=== PATIENT | female | born 1985 | race Caucasian/White ===

== ENCOUNTER 2021-04-25 23:23 | Observation (INO) | payer OTHER, SELFPAY ==
--- NOTE | ~2021-04-25 | FL_ITS ---
EXAMINATION: XR LUMBAR PUNCTURE CLINICAL INFORMATION: Slurred speech/dysarthria. Headache and weakness. TIA versus demyelinating disease. COMPARISON: None TECHNIQUE/FINDINGS: Procedure and risks and benefits including bleeding, infection and headache were discussed with the patient and informed consent was obtained. Patient was positioned in the prone position. The lower back was prepped and draped in the usual sterile fashion. The skin and soft tissues were anesthetized with 1% lidocaine plain. Using fluoroscopic guidance and a 22-gauge spinal needle, access to the CSF fluid at the L3-L4 interlaminar level was obtained. Opening pressure was 16 cm of water. 8 mL of clear CSF fluid was removed. Fluid was sent for diagnostic studies as requested by the ordering physician. FLUOROSCOPY TIME: 0.1 minute DOSE AREA PRODUCT: 0.8 Gycm2 SAVED FLUOROSCOPIC IMAGE: 1 FL/FL guided lumbar puncture LP IMPRESSION: Fluoroscopy-guided lumbar puncture.
--- NOTE | ~2021-04-25 | CT_ITS ---
EXAMINATION: CTA NECK WITH CONTRAST (STROKE) CTA BRAIN WITH CONTRAST (STROKE) CLINICAL INFORMATION: Dysarthria 3.5 hours COMPARISON: Noncontrast head CT 04/25/2021 TECHNIQUE: Test bolus sequences followed by intravenous administration 85 mL of Omnipaque 350. Helical imaging was performed in the axial plane from the thoracic inlet to the skull vertex. Delayed postcontrast imaging of the head was also performed. The data was processed at the chief radiologic technologist's workstation for generation of MIP sequences. Angled MIPs and volume rendered reformatted images were also generated at an offline 3D workstation. Stenoses are assessed in accordance with NASCET criteria unless otherwise indicated. DOSE LOWERING TECHNIQUES: This CT examination was performed using dose optimization techniques as appropriate, variously including the following: - Automated exposure control - Adjustment of mA and/or kV according to patient size (this includes techniques or standardized protocols for targeted exams were dose is matched to indication/reason for exam; i.e. extremities or head) - Use of iterative reconstruction technique DLP: 1394 mGy-cm FINDINGS: Neck CTA: There is a classic 3 vessel branching pattern of the aortic arch. Normal appearance of the visualized aortic arch and proximal branches. No evidence of stenosis at the branch origins. Both vertebral arteries are widely patent throughout their extracranial cervical course. Normal appearance of the common and internal carotid arteries without focal stenosis. Brain CTA: Normal appearance of the intradural vertebral arteries. Normal appearance of the basilar and superior cerebellar arteries. Normal appearance of the posterior cerebral arteries bilaterally. Normal appearance of the intradural internal carotid arteries without focal stenosis. Normal appearance of the anterior cerebral and middle cerebral arteries without focal occlusion or stenosis. Normal anterior communicating artery. Normal arborization of the middle cerebral arteries. CT Head: No intracranial mass, hemorrhage, extra-axial collection, or midline shift. The villareal-white matter differentiation is preserved. No pathologic intra-axial enhancement or regional oligemia. No hydrocephalus. The mastoid air cells and paranasal sinuses remain well aerated. CT Neck: The left salivary gland appears diminutive. The thyroid gland and remaining cervical soft tissues are normal in appearance. No cervical spine abnormalities demonstrated. Upper Chest: No abnormalities in the visualized lung apices or upper mediastinum. CT/CT angio head neck stroke IMPRESSION: No hemodynamically significant stenosis in the major arteries of the neck. No large vessel occlusion or significant stenosis in the intracranial circulation. This stroke protocol result was discussed with Dr. Janelle Montana on 04/26/2021 12:17 AM, and it was ascertained that the content and urgency of the report was understood at the time of direct communication.
--- NOTE | ~2021-04-25 | MR_ITS ---
MR BRAIN WITHOUT AND WITH IV CONTRAST CLINICAL INFORMATION: Slurred speech. TIA versus MS. Dysarthria. COMPARISON: CTA head and neck and head CT 04/25/2021. TECHNIQUE: Multiplanar, multisequence MRI of the brain was obtained before and after the intravenous administration of 9 mL Gadavist. FINDINGS: There is significant non-enhancing restricted diffusion within the central splenium of the corpus callosum, the deep white matter of the centrum semiovale bilaterally, and to a lesser extent the middle cerebellar peduncles bilaterally. There is no pathologic intracranial enhancement. No parenchymal signal abnormality. There is no hydrocephalus, extra-axial surface collection, or herniation. The major flow voids at the skull base are preserved. There is no intracranial hemorrhage on the gradient recalled echo acquisition. The midline structures are normal. The cerebellar tonsils are normally positioned. The cerebellum and brainstem are normal. The craniocervical junction is normal. Osseous marrow signal intensity is homogenous. The visualized soft tissues are unremarkable. MR/MR head/brain wo/w con IMPRESSION: There is significant non-enhancing restricted diffusion within the central splenium of the corpus callosum, the deep white matter of the centrum semiovale bilaterally, and to a lesser extent the middle cerebellar peduncles bilaterally. Major differential considerations are broad and include toxic, metabolic, infectious, inflammatory, drug-induced, and other cytotoxic etiologies. In the setting of alcohol use, Marchiafava-Bignami disease should be considered. CSF analysis and metabolic panel correlation advised. The pattern of restricted diffusion would not be typical for anoxic changes and the lack of enhancement makes a neoplastic process unlikely.
--- NOTE | ~2021-04-25 | CT_ITS ---
EXAMINATION: CT HEAD WITHOUT CONTRAST (STROKE PROTOCOL) INDICATION INFORMATION: Dysarthria 3.5 hours COMPARISON: None TECHNIQUE: Noncontrast CT of the head was performed. DLP: 616 mGy-cm DOSE LOWERING TECHNIQUES: This CT examination was performed using dose optimization techniques as appropriate, variously including the following: - Automated exposure control - Adjustment of mA and/or kV according to patient size (this includes techniques or standardized protocols for targeted exams were dose is matched to indication/reason for exam; i.e. extremities or head) - Use of iterative reconstruction technique FINDINGS: There is no evidence of acute intracranial hemorrhage or territorial infarction. No abnormal mass-effect or midline shift is seen. Sarkar to white matter differentiation is well preserved. No extra-axial fluid collections are identified. The ventricles are normal in size. There is no abnormal attenuation within the brain parenchyma. The osseous structures and soft tissues are normal. The mastoid air cells and visualized portions of the paranasal sinuses are well-aerated. CT/CT head for stroke IMPRESSION: No acute intracranial findings. This stroke protocol result was discussed with Dr. Janelle Montana on 04/25/2021 11:45 PM, and it was ascertained that the content and urgency of the report was understood at the time of direct communication.
--- NOTE | 2021-04-25 23:33 | ECG_ITS ---
Test Reason : Weakness Blood Pressure : / mmHG Vent. Rate : 081 BPM Atrial Rate : 081 BPM P-R Int : 144 ms QRS Dur : 084 ms QT Int : 396 ms P-R-T Axes : 051 063 053 degrees QTc Int : 460 ms Normal sinus rhythm Possible Left atrial enlargement Otherwise normal ECG No previous ECGs available Referred By: Janelle Montana Electronically Signed By:BHARTI MI MD
--- NOTE | 2021-04-25 23:46 | PC.NURSE ---
call out to neurology
--- NOTE | 2021-04-25 23:49 | ED_ITS ---
HPI - Neuro Symptoms/Deficit General Stated Complaint: stroke Time Seen by Provider: 04/25/21 23:31 Source: patient and EMS Mode of arrival: ambulatory Limitations: no limitations History of Present Illness HPI Narrative: Patient is brought by her father to the emergency room for acute onset of dysarthria and left-sided mouth 3. Patient and family state that the patient has been complaining of weakness sensation in the lower extremities and left hand. Today, approximately 3-1/2 hours ago patient had a sudden onset of dysarthria and mild left-sided mouth droop. This symptoms started a few minutes after taking her regular dose of clonidine. Patient is unable to give any significant history at this time, patient is very anxious, having significant dysarthria, very frustrated trying to communicate with us. Related Data Allergies Allergy/AdvReac Type Severity Reaction Status Date / Time venlafaxine [From EFFEXOR] Allergy Unknown FACIAL Unverified 02/20/20 17:28 SWELLING Effexor Allergy Unknown Uncoded 12/11/14 00:00 Review of Systems Review of Systems: Constitutional : No Weight loss, No Fever, No Chills, No Night Sweats, No Fatigue, No Malaise ENT/Mouth : No Hearing loss, No Ear Pain, No Nasal Congestion, No Sinus Pain, No Hoarseness, No sore throat, No Rhinorrhea, No Swallowing Difficulty Eyes: No Eye Pain, No Swelling, No Redness, No Foreign Body, No Discharge, No Vision Changes Cardiovascular : No Chest Pain, No SOB, No Dyspnea on Exertion, No Orthopnea, No Edema, No Palpitations Respiratory : No Cough, No Sputum, No Wheezing, No Smoke Exposure, No Dyspnea Gastrointestinal : No Nausea, No Vomiting, No Diarrhea, No Constipation, No abdominal Pain, No Hematochezia, No Melena Genitourinary : no irregular bleeding, No Dysuria, No Urinary Frequency, No Hematuria, No Urinary Incontinence, No Urgency, No Flank Pain, No Urinary Flow Changes, No Hesitancy Musculoskeletal : No joint pain, No Myalgias, No Joint Swelling Skin : No Skin Lesions, No rash Neuro : Complaining of 2 days of sensation of lower extremity weakness and left hand weakness sensation as well. Slurred speech starting at 8 p.m. left-sided mouth drooping Psych : No Anxiety/Panic, No Depression, No SI/HI/AH/VH, No Social Issues, Heme/Lymph: No Bruising, No Bleeding,No Lymphadenopathy Endocrine : No Polyuria, No Polydipsia, No Temperature Intolerance [facility] Past Medical History Medical History Depression IV drug abuse Social History Social History Advance Directives: No Advance Directives Information Provided: Yes Patient : No Physical Exam Const: Other: Appearance: Alert. Oriented X3. No acute distress. Eyes: Pupils equal, round and reactive to light. ENT: Pharynx normal. Neck: Normal inspection. Neck supple. No lymph nodes noted. No crepitus CVS: Normal heart rate and rhythm. Pulses normal. Normal S1 and S2 Respiratory: No respiratory distress. Breath sounds normal. No Wheezing. No rales Abdomen: Soft and nontender. No rigidity. No distention. good BS x4 Skin: Skin warm and dry. Normal skin color. Normal skin turgor. Extremities: No lower extremity edema. No lower extremity edema. No Lacerations. No Rash Neuro: Oriented X 3. Patient has slurred speech, mild twitching on the left mouth, mild mild droop on the left side. No pronator drift, 5/5 strength in all extremities Course Course Course Narrative: I was informed by the patient's nurse that while the IV was being placed, the patient was able to speak normally without slurred speech, did not have any facial droop. I discussed the patient with Dr. Chan, at this time, it is unlikely that the patient may be having a stroke. TPA will not be given. Also discussed with Dr. Chan if an LP would be indicated due to the history of lower extremity weakness/sensation of weakness. At this time LP will not be done either. Patient will be admitted for MRI in the morning. I discussed the patient with Dr. Looney, patient being admitted MDM - Neuro Symptoms/Deficit Imaging Data CT head, CTA neck, CTA: Radiologist's impression: FINDINGS: Neck CTA: There is a classic 3 vessel branching pattern of the aortic arch. Normal appearance of the visualized aortic arch and proximal branches. No evidence of stenosis at the branch origins. Both vertebral arteries are widely patent throughout their extracranial cervical course. Normal appearance of the common and internal carotid arteries without focal stenosis. Brain CTA: Normal appearance of the intradural vertebral arteries. Normal appearance of the basilar and superior cerebellar arteries. Normal appearance of the posterior cerebral arteries bilaterally. Normal appearance of the intradural internal carotid arteries without focal stenosis. Normal appearance of the anterior cerebral and middle cerebral arteries without focal occlusion or stenosis. Normal anterior communicating artery. Normal arborization of the middle cerebral arteries. CT Head: No intracranial mass, hemorrhage, extra-axial collection, or midline shift. The villareal-white matter differentiation is preserved. No pathologic intra-axial enhancement or regional oligemia. No hydrocephalus. The mastoid air cells and paranasal sinuses remain well aerated. CT Neck: The left salivary gland appears diminutive. The thyroid gland and remaining cervical soft tissues are normal in appearance. No cervical spine abnormalities demonstrated. Upper Chest: No abnormalities in the visualized lung apices or upper mediastinum. CT/CT angio head? neck stroke IMPRESSION: No hemodynamically significant stenosis in the major arteries of the neck. No large vessel occlusion or significant stenosis in the intracranial circulation. NIH Stroke Scale Level of Consciousness: Alert Level of Consciousness Questions: Answers both questions correctly Level of Consciousness Commands: Performs both tasks correctly Best Gaze: Normal Visual: No visual loss Facial Palsy: Minor paralyis Motor Arm (Right): No drift Motor Arm (Left): No drift Motor Leg (Right): No drift Motor Leg (Left): No drift Limb Ataxia: Absent Sensory: Normal Best Language: No aphasia Dysarthia: Mild to moderate dysarthria Extinction and Inattention: No abnormality Score: 2 Discharge Plan Discharge Clinical Impression: Dysarthria Patient Disposition: Admitted As Inpatient
[2021-04-25] MEDS: iohexoL 350 MG/ML 100 ML INFUS..BTL 85 ML IV (23:59)
[2021-04-26] VITALS (9 sets, daily range): BP systolic 101–140; BP diastolic 62–95; PULSE 74–101; RESP 16–24; TEMP 36.1–37.1; O2SAT 96–99; BMI 23.5
--- NOTE | 2021-04-26 00:08 | PC.NURSE ---
while patient was in ct scan this rn doing full neuro assessment. able to move eye brows up and down equally, smile with no facial droop showing teeth. able to stick out tongue equally. patient has no arm drift, hand grasp is equal with no deficits, able to lift both legs and equal strength. patient having no issues with words while placing iv while in ct scan. patient shouting fuck no droop or slurring. but when patient asked what her name is patient seen clenching teeth on the left side and stating her name, cheek muscles seen moving as patient holding her mouth closed on that side. after ct scan provider going to evaluate patient. patient got up and ambulated to the bathroom without issue mid-evaluation with provider dr. white.
[2021-04-26 00:20] LABS: MANUAL DIFF FLAG NO
[2021-04-26 00:22] LABS: Basophils Percent Auto 0.4 % (0-2); Hemoglobin 11.6 g/dl (12.0-16.0); Imm Gran Abs Auto 0.01 X10*3/uL (0.00-0.03); Imm Gran Pct Auto 0.2 % (0.0-0.4); Lymphocytes Absolute Auto 1.8 X10*3/uL (1.2-4.9); Lymphocytes Percent Auto 35.3 % (20-40); Mean Corpuscular HGB Conc 33.1 g/dl (31.0-35.0); Mean Corpuscular Hemoglobin 27.9 pg (27.0-33.0); Mean Corpuscular Volume 84.1 fL (80.0-98.0); Mean Platelet Volume 9.7 fL (9.4-12.3); Monocytes Absolute Auto 0.6 X10*3/uL (0.1-1.2); Neutrophils Absolute Auto 2.7 x10*3/uL (2.0-8.3); Neutrophils Percent Auto 53.1 % (45-73); Platelet Count 183 X10*3/uL (160-400); Red Blood Count 4.16 X10*6/uL (4.20-5.50)
[2021-04-26 00:23] LABS: Appearance Urine CLEAR; Color Urine YELLOW; Glucose Urine UA NEG (NEG); Leukocyte Esterase Urine NEG (NEG); Nitrite Urine NEG (NEG); Specific Gravity - Urine <= 1.005 (1.005-1.025); Urine Blood NEG (NEG); Urine Ketones NEG (NEG); Urine Protein NEG (NEG-TRACE)
[2021-04-26 00:35] LABS: Ethanol < 10 mg/dL
[2021-04-26 00:37] LABS: COVID-19 Test Negative (Negative); IDNOW Serial# 9DD0AD1C
[2021-04-26 00:38] LABS: Amphetamine Screen Urine Not Detected (Not Detect); Barbiturates, Urine Not Detected (Not Detect); Benzodiazepines Screen Urine Not Detected (Not Detect); Cannabinoid Screen Urine Not Detected (Not Detect); Cocaine Screen Urine Not Detected (Not Detect); Fentanyl, urine Not Detected (Not Detect); Opiate Screen Urine Not Detected (Not Detect); Phencyclidine Screen Urine Not Detected (Not Detect)
[2021-04-26 00:39] LABS: Alanine Aminotransferase 15 U/L (0-31); Albumin Level 4.1 g/dL (3.5-5.0); Alkaline Phosphatase 53 U/L (39-117); Anion Gap 13 (12-20); Aspartate Amino Transferase 25 U/L (5-31); Bilirubin Direct < 0.2 mg/dL (0.0-0.5); Bilirubin Total 0.3 mg/dL (0.0-1.0); Blood Urea Nitrogen 12 mg/dL (9-16); Calcium 9.1 mg/dL (8.4-10.2); Carbon Dioxide 27 mmol/L (22-29); Chloride 99 mmol/L (96-108); Creatinine Clr Calc Pharmacy 95.1; Estimated Glomerular Filt Rate > 60; Glucose Random 105 mg/dL (60-115); Magnesium 1.9 mg/dL (1.6-2.6); Potassium 3.1 mmol/L (3.3-5.1); Sodium 136 mmol/L (135-145); Total Protein 6.7 g/dL (6.5-8.0)
--- NOTE | 2021-04-26 00:51 | PC.NURSE ---
notified [facility] of trop 18.0
--- NOTE | 2021-04-26 01:29 | P.HPHOSP_ITS ---
History of Present Illness Date of Service: 04/26/21 Chief Complaint: slurred speech 35-year-old female with past medical history of depression IV drug abuse who presents to the hospital for acute onset dysarthria and left-sided mouth droopiness. Patient reports that she has difficulty speaking,as numbness and t ingling around her lips, weakness in her legs bilaterally and tingling in her hands bilaterally Symptoms started around 8:00 p.m., have not resolved. She otherwise denies any headache, no change in vision, no chest pain no abdominal pain, no nausea or vomiting, no diarrhea or constipation, no urinary symptoms and no lower extremity edema. Her father is a physician who is at bedside reports the patient did use IV cocaine recently and has a history of IV drug use and that is why they were very concerned. Vital signs reviewed significant for temperature of 97?, rate of 101, respiratory rate of 24, blood pressure 137/95, statin and% room air Labs are significant for WBC count of 5, hemoglobin of 11.6, otherwise unremarkable, UA negative, UDS negative, COVID-[address] shows no acute intracranial finding Head and neck CT angiogram shows no hemodynamically significant stenosis in the major arteries of the neck, no large vessel occlusion or significant stenosis in the intracranial circulation Patient will be admitted for observation Review of Systems Review of Systems: Yes all other systems are reviewed and are negative [facility] Medical History Depression IV drug abuse Pertinent family history: Father at bedside denies any family history, No history of coronary artery disease in family Surgical History (Updated 04/26/21 @ 05:45 by Chrissy Looney MD) No pertinent past surgical history Social History Advance Directives: No Advance Directives Information Provided: Yes Patient : No Meds Allergies Allergy/AdvReac Type Severity Reaction Status Date / Time venlafaxine [From EFFEXOR] Allergy Unknown FACIAL Unverified 02/20/20 17:28 SWELLING Effexor Allergy Unknown Uncoded 12/11/14 00:00 Home Medications Medication Instructions Recorded Confirmed Last Taken Type clonidine HCl 0.1 mg tablet 1 tab PO QID PRN 04/26/21 04/26/21 Unknown History duloxetine 60 mg capsule,delayed 2 cap PO BEDTIME 04/26/21 04/26/21 Unknown History release hydroxyzine HCl 50 mg tablet 1 tab PO Q6H PRN 04/26/21 04/26/21 Unknown History nifedipine 10 mg capsule 10 mg PO BID PRN 04/26/21 04/26/21 Unknown History oxybutynin chloride 5 mg tablet 1 tab PO TID 04/26/21 04/26/21 Unknown History Physical Exam Vital Signs and Narrative: Vital Signs: Last Vital Signs Temp 98.7 F 04/26/21 00:24 Pulse 101 H 04/26/21 00:24 Resp 16 04/26/21 00:24 BP 101/62 04/26/21 00:24 Pulse Ox 96 04/26/21 00:24 Body Mass Index 23.5 Const: General: cooperative and no acute distress Orientation/consciousness: patient oriented x3 Eyes: General: appearance normal, both eyes and all related structures Pupils: Equal, round and reactive pupils present Resp: Effort & Inspection: normal respiratory effort Auscultation: clear to auscultation bilaterally Cardio: Rate: regular rate Rhythm: regular rhythm GI: Palpation (GI): Soft to palpation Auscultation: normal bowel sounds Skin: General skin exam: no rashes or lesions noted Neuro: Other: Dysarthria No significant facial droop or asymmetry Strength is 5/5 in all extremities General: patient oriented x3 Cranial nerves: Yes Equal, round and reactive pupils present Cognition (Neuro): normal cognition Extrem: General: Yes normal to inspection and Yes no pedal edema Results Labs CBC and Chem 7: 04/26/21 00:14 04/26/21 00:14 Labs: Laboratory Results - last 24 hr 04/26/21 04/26/21 04/26/21 00:13 00:13 00:13 MCV MCH MCHC RDW Plt Count MPV Immature Gran % (Auto) Neut % (Auto) Lymph % (Auto) [place] % (Auto) Eos % (Auto) Baso % (Auto) Lymph # (Auto) [place] # (Auto) Eos # (Auto) Baso # (Auto) Abs Immat Gran (auto) Absolute Neuts (auto) Absolute Nucleated RBC Nucleated RBC % (auto) Anion Gap Estim Creat Clear Calc Estimated GFR Random Glucose Lactic Acid Calcium Magnesium Total Bilirubin Direct Bilirubin AST ALT Alkaline Phosphatase Troponin I High Sens Total Protein Albumin Urine Color YELLOW Urine Appearance CLEAR Urine pH 7.0 Ur Specific [place] <= 1.005 Urine Protein NEG Urine Glucose (UA) NEG Urine Ketones NEG Urine Blood NEG Urine Nitrite NEG Ur Leukocyte Esterase NEG Urine Opiates Screen Not Detected Urine Fentanyl Screen Not Detected Ur Barbiturates Screen Not Detected Ur Phencyclidine Scrn Not Detected Ur Amphetamines Screen Not Detected U Benzodiazepines Scrn Not Detected Urine Cocaine Screen Not Detected U Marijuana (THC) Screen Not Detected Ethyl Alcohol COVID-19 (AILYN) Negative COVID-19 Clin Com See Note 04/26/21 04/26/21 04/26/21 00:14 00:14 00:14 MCV 84.1 MCH 27.9 MCHC 33.1 RDW 13.0 Plt Count 183 MPV 9.7 Immature Gran % (Auto) 0.2 Neut % (Auto) 53.1 Lymph % (Auto) 35.3 [place] % (Auto) 11.0 Eos % (Auto) 0.0 Baso % (Auto) 0.4 Lymph # (Auto) 1.8 [place] # (Auto) 0.6 Eos # (Auto) 0.0 Baso # (Auto) 0.0 Abs Immat Gran (auto) 0.01 Absolute Neuts (auto) 2.7 Absolute Nucleated RBC 0.000 Nucleated RBC % (auto) 0.0 Anion Gap 13 Estim Creat Clear Calc 95.1 Estimated GFR > 60 Random Glucose 105 Lactic Acid Calcium 9.1 Magnesium 1.9 Total Bilirubin 0.3 Direct Bilirubin < 0.2 AST 25 ALT 15 Alkaline Phosphatase 53 Troponin I High Sens 18.0 H* Total Protein 6.7 Albumin 4.1 Urine Color Urine Appearance Urine pH Ur Specific [place] Urine Protein Urine Glucose (UA) Urine Ketones Urine Blood Urine Nitrite Ur Leukocyte Esterase Urine Opiates Screen Urine Fentanyl Screen Ur Barbiturates Screen Ur Phencyclidine Scrn Ur Amphetamines Screen U Benzodiazepines Scrn Urine Cocaine Screen U Marijuana (THC) Screen Ethyl Alcohol COVID-19 (AILYN) COVID-19 [employer] Com 04/26/21 04/26/21 00:15 00:15 MCV MCH MCHC RDW Plt Count MPV Immature Gran % (Auto) Neut % (Auto) Lymph % (Auto) [place] % (Auto) Eos % (Auto) Baso % (Auto) Lymph # (Auto) [place] # (Auto) Eos # (Auto) Baso # (Auto) Abs Immat Gran (auto) Absolute Neuts (auto) Absolute Nucleated RBC Nucleated RBC % (auto) Anion Gap Estim Creat Clear Calc Estimated GFR Random Glucose Lactic Acid 1.0 Calcium Magnesium Total Bilirubin Direct Bilirubin AST ALT Alkaline Phosphatase Troponin I High Sens Total Protein Albumin Urine Color Urine Appearance Urine pH Ur Specific [place] Urine Protein Urine Glucose (UA) Urine Ketones Urine Blood Urine Nitrite Ur Leukocyte Esterase Urine Opiates Screen Urine Fentanyl Screen Ur Barbiturates Screen Ur Phencyclidine Scrn Ur Amphetamines Screen U Benzodiazepines Scrn Urine Cocaine Screen U Marijuana (THC) Screen Ethyl Alcohol < 10 COVID-19 (AILYN) COVID-19 Clin Com Imaging Radiologist's Impressions: Impressions Head/Neck CTA 04/25/21 23:31 IMPRESSION: No hemodynamically significant stenosis in the major arteries of the neck. No large vessel occlusion or significant stenosis in the intracranial circulation. This stroke protocol result was discussed with Dr. Janelle Montana on 04/26/2021 12:17 AM, and it was ascertained that the content and urgency of the report was understood at the time of direct communication. Head CT 04/25/21 23:32 IMPRESSION: No acute intracranial findings. This stroke protocol result was discussed with Dr. Janelle Montana on 04/25/2021 11:45 PM, and it was ascertained that the content and urgency of the report was understood at the time of direct communication. Assessment and Plan (1) Dysarthria: Status: Acute 35-year-old female past medical history of IV drug use presents to the hospital with complaints of dysarthria, paresthesia on her aunt as well as weakness in arms # dysarthria - no neurological deficits on exam except the dysarthria - CT head and CT angiogram negative - does have history of IV drug use with a recent use of IV cocaine - UDS negative - will obtain MRI with and without contrast to also rule out any signs or evidence of MS although very less likely - will consult neurology # IV drug use - monitor for withdrawal symptoms - otherwise will continue clonidine, and hydroxyzine # depression - continue duloxetine DVT prophylaxis: Early ambulation Quality Stroke Does the patient have a stroke diagnosis?: No VTE Prior VTE?: No VTE Risk Level:: Medical - moderate - high VTE Device Contraindication: Treatment Not Indicated VTE Drug Contraindication: N/A - Med Ordered
[2021-04-26 07:08] LABS: MANUAL DIFF FLAG NO
[2021-04-26 07:15] LABS: Basophils Percent Auto 0.5 % (0-2); Hematocrit 34.9 % (37.0-47.0); Hemoglobin 11.6 g/dl (12.0-16.0); Imm Gran Abs Auto 0.01 X10*3/uL (0.00-0.03); Imm Gran Pct Auto 0.2 % (0.0-0.4); Lymphocytes Absolute Auto 2.3 X10*3/uL (1.2-4.9); Mean Corpuscular HGB Conc 33.2 g/dl (31.0-35.0); Mean Corpuscular Hemoglobin 28.2 pg (27.0-33.0); Mean Corpuscular Volume 84.7 fL (80.0-98.0); Mean Platelet Volume 10.6 fL (9.4-12.3); Monocytes Absolute Auto 0.7 X10*3/uL (0.1-1.2); Monocytes Percent Auto 15.6 % (2-11); Neutrophils Absolute Auto 1.4 x10*3/uL (2.0-8.3); Neutrophils Percent Auto 31.7 % (45-73); Platelet Count 189 X10*3/uL (160-400); Red Blood Count 4.12 X10*6/uL (4.20-5.50); Red Cell Distribution Width 13.1 % (11.0-16.0); White Blood Count 4.4 X10*3/uL (4.8-10.8)
--- NOTE | 2021-04-26 07:21 | PHA.MEDREC ---
Pharmacy Consult ? Medication Reconciliation Pharmacy has reviewed the medication reconciliation compelte by Marifer frank.
[2021-04-26 07:38] LABS: Anion Gap 13 (12-20); Blood Urea Nitrogen 10 mg/dL (9-16); Calcium 9.3 mg/dL (8.4-10.2); Carbon Dioxide 32 mmol/L (22-29); Chloride 103 mmol/L (96-108); Creatinine Clr Calc Pharmacy 96.3; Estimated Glomerular Filt Rate > 60; Glucose Random 100 mg/dL (60-115); Potassium 4.8 mmol/L (3.3-5.1); Sodium 143 mmol/L (135-145)
[2021-04-26 09:23] LABS: Troponin-I High Sensitivity 11.4 ng/L (<3.5-17.0)
[2021-04-26] MEDS: methADONE HCl 20 MG/2 ML ORAL.CONC 80 MG PO (10:10)
--- NOTE | 2021-04-26 10:24 | MHC.CM.PN ---
CM MET WITH PT WHO REPORTS SHE LIVES ALONE AND IS INDEPENDENT WITH CARE PT DENIES HAVING HOME SERVICES OR DME PT REPORTS SHE IS ACTIVE WITH THE [facility] IN [place] PT IS VERY ANXIOUS DURING INTERVIEW DUE TO NOT YET RECEIVING HER METHADONE DOSE. SHE DOES NOT WANT TO DISCUSS COMPLETING A HCP AT THIS TIME PT REPORTS HER PCP IS GEORGIE MULLINS. OBSERVATION NOTICE DELIVERED CURRENT DC PLAN IS HOME WITH RESUMPTION OF HER [facility] SERVICES PT WILL SELF ARRANGE TRANSPORTATION
--- NOTE | 2021-04-26 12:04 | PM.DS ---
DS: Providers Provider Date of Service: 04/26/21 Date of admission: 04/26/21 01:29 Primary care physician: Unknown Physician Consults: 04/26/21 01:34 Consult to Neurology Routine Consulting Provider: [facility] Reason for consultation: slurred speech, leg weakness Has provider been notified: No DS: Diagnosis Discharge Diagnosis (1) Dysarthria: Status: Acute DS: Summary Hospital Course Hospital Course: 35-year-old female with past medical history of depression IV drug abuse who presents to the hospital for acute onset dysarthria and left-sided mouth droopiness.? Patient reports that she has difficulty speaking,as numbness and tingling around her lips, weakness in her legs bilaterally and tingling in her hands bilaterally? Symptoms started around 8:00 p.m., have not resolved.? She otherwise denies any headache, no change in vision, no chest pain no abdominal pain, no nausea or vomiting, no diarrhea or constipation, no urinary symptoms and no lower extremity edema.? Her father is a physician who is at bedside reports the patient did use IV cocaine recently and has a history of IV drug use and that is why they were very concerned. Vital signs reviewed significant for temperature of 97?, rate of 101, respiratory rate of 24, blood pressure 137/95, statin and% room air Labs are significant for WBC count of 5, hemoglobin of 11.6, otherwise unremarkable, UA negative, UDS negative, COVID-[address] shows no acute intracranial finding Head and neck CT angiogram shows no hemodynamically significant stenosis in the major arteries of the neck, no large vessel occlusion or significant stenosis in the intracranial circulation. Hospital course: Patient came with slurred speech-had workup with CT scan and MRI done and seen by neurologist and recommendations are:? ? 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 My suggestion at this time is to educate her which I did and repeat brain scan in 2-3 months.? She is advised to talk to her primary care physician and obtain outpatient neurology consultation. Patient symptoms seems to be improved . In addition advised her strongly to avoid cocaine use and other brain toxins including alcohol, try to taper down methadone out patiently to stop if possible. Above management discussed with the patient in detail length by neurology and recomendation discussed again upon discharge.-she understand and in agreement with the above plan, time spent 50 minutes and 50% time spent on counseling. Significant findings: As above. Procedures performed: None. Treatment and response: As above. Complications: None. Time Spent with Patient Time attestation: Total time spent providing and/or coordinating discharge services: Discharge coordination time: Greater than 30 minutes Quality: Stroke Does the patient have a stroke diagnosis?: No Physical Exam Vital Signs: Vital Signs: Last Vital Signs Temp 98.2 F 04/26/21 11:09 Pulse 89 04/26/21 11:09 Resp 18 04/26/21 11:09 BP 134/80 04/26/21 11:09 Pulse Ox 96 04/26/21 11:09 Body Mass Index 23.5 Physical exam: Appearance: Alert.? Oriented X3.? not in distress.? Eyes: Pupils equal, round and reactive to light.? Sclera nonicteric.? ENT: Pharynx normal.? Moist mucous membranes. cvs: rrr, [id number] , no murmur res: clear to auscultation ,no rhonchii or wheezing abd: no rebound or guarding ,nt, bs present. ext pulses present , no cyanosis ,Gait well balanced well coordinated. neuro: She was alert and awake with normal spontaneity and fluency of speech.? Pupils were equal and reactive to light and extraocular muscles were intact.? Visual marroquin are full.? Face was symmetrical.? Tongue was midline.? There was no pronator drift.? [id number] testing was normal.? Deep tendon reflexes were 2+ in arms 3+ in knees and 2+ and ankles with flexor plantars. ? She was able to get up and walk with no difficulty. DS: Data Data Completed and Pending Labs on day of discharge: Laboratory Results - last 24 hr 04/26/21 04/26/21 04/26/21 00:13 00:13 00:13 WBC RBC Hgb Hct MCV MCH MCHC RDW Plt Count MPV Immature Gran % (Auto) Neut % (Auto) Lymph % (Auto) [place] % (Auto) Eos % (Auto) Baso % (Auto) Lymph # (Auto) [place] # (Auto) Eos # (Auto) Baso # (Auto) Abs Immat Gran (auto) Absolute Neuts (auto) Absolute Nucleated RBC Nucleated RBC % (auto) Sodium Potassium Chloride Carbon Dioxide Anion Gap BUN Creatinine Estim Creat Clear Calc Estimated GFR Random Glucose Lactic Acid Calcium Magnesium Total Bilirubin Direct Bilirubin AST ALT Alkaline Phosphatase Total Creatine Kinase Troponin I High Sens Total Protein Albumin Urine Color YELLOW Urine Appearance CLEAR Urine pH 7.0 Ur Specific [place] <= 1.005 Urine Protein NEG Urine Glucose (UA) NEG Urine Ketones NEG Urine Blood NEG Urine Nitrite NEG Ur Leukocyte Esterase NEG Urine Opiates Screen Not Detected Urine Fentanyl Screen Not Detected Ur Barbiturates Screen Not Detected Ur Phencyclidine Scrn Not Detected Ur Amphetamines Screen Not Detected U Benzodiazepines Scrn Not Detected Urine Cocaine Screen Not Detected U Marijuana (THC) Screen Not Detected Ethyl Alcohol COVID-19 (AILYN) Negative COVID-19 Clin Com See Note 04/26/21 04/26/21 04/26/21 00:14 00:14 00:14 WBC 5.0 RBC 4.16 L Hgb 11.6 L Hct 35.0 L MCV 84.1 MCH 27.9 MCHC 33.1 RDW 13.0 Plt Count 183 MPV 9.7 Immature Gran % (Auto) 0.2 Neut % (Auto) 53.1 Lymph % (Auto) 35.3 [place] % (Auto) 11.0 Eos % (Auto) 0.0 Baso % (Auto) 0.4 Lymph # (Auto) 1.8 [place] # (Auto) 0.6 Eos # (Auto) 0.0 Baso # (Auto) 0.0 Abs Immat Gran (auto) 0.01 Absolute Neuts (auto) 2.7 Absolute Nucleated RBC 0.000 Nucleated RBC % (auto) 0.0 Sodium 136 Potassium 3.1 L Chloride 99 Carbon Dioxide 27 Anion Gap 13 BUN 12 Creatinine 0.81 Estim Creat Clear Calc 95.1 Estimated GFR > 60 Random Glucose 105 Lactic Acid Calcium 9.1 Magnesium 1.9 Total Bilirubin 0.3 Direct Bilirubin < 0.2 AST 25 ALT 15 Alkaline Phosphatase 53 Total Creatine Kinase Troponin I High Sens 18.0 H* Total Protein 6.7 Albumin 4.1 Urine Color Urine Appearance Urine pH Ur Specific [place] Urine Protein Urine Glucose (UA) Urine Ketones Urine Blood Urine Nitrite Ur Leukocyte Esterase Urine Opiates Screen Urine Fentanyl Screen Ur Barbiturates Screen Ur Phencyclidine Scrn Ur Amphetamines Screen U Benzodiazepines Scrn Urine Cocaine Screen U Marijuana (THC) Screen Ethyl Alcohol COVID-19 (AILYN) COVID-19 Clin Com 04/26/21 04/26/21 04/26/21 00:15 00:15 06:24 WBC 4.4 L RBC 4.12 L Hgb 11.6 L Hct 34.9 L MCV 84.7 MCH 28.2 MCHC 33.2 RDW 13.1 Plt Count 189 MPV 10.6 Immature Gran % (Auto) 0.2 Neut % (Auto) 31.7 L Lymph % (Auto) 52.0 H [place] % (Auto) 15.6 H Eos % (Auto) 0.0 Baso % (Auto) 0.5 Lymph # (Auto) 2.3 [place] # (Auto) 0.7 Eos # (Auto) 0.0 Baso # (Auto) 0.0 Abs Immat Gran (auto) 0.01 Absolute Neuts (auto) 1.4 L Absolute Nucleated RBC 0.000 Nucleated RBC % (auto) 0.0 Sodium Potassium Chloride Carbon Dioxide Anion Gap BUN Creatinine Estim Creat Clear Calc Estimated GFR Random Glucose Lactic Acid 1.0 Calcium Magnesium Total Bilirubin Direct Bilirubin AST ALT Alkaline Phosphatase Total Creatine Kinase Troponin I High Sens Total Protein Albumin Urine Color Urine Appearance Urine pH Ur Specific [place] Urine Protein Urine Glucose (UA) Urine Ketones Urine Blood Urine Nitrite Ur Leukocyte Esterase Urine Opiates Screen Urine Fentanyl Screen Ur Barbiturates Screen Ur Phencyclidine Scrn Ur Amphetamines Screen U Benzodiazepines Scrn Urine Cocaine Screen U Marijuana (THC) Screen Ethyl Alcohol < 10 COVID-19 (AILYN) COVID-19 Clin Com 04/26/21 04/26/21 06:24 08:22 WBC RBC Hgb Hct MCV MCH MCHC RDW Plt Count MPV Immature Gran % (Auto) Neut % (Auto) Lymph % (Auto) [place] % (Auto) Eos % (Auto) Baso % (Auto) Lymph # (Auto) [place] # (Auto) Eos # (Auto) Baso # (Auto) Abs Immat Gran (auto) Absolute Neuts (auto) Absolute Nucleated RBC Nucleated RBC % (auto) Sodium 143 Potassium 4.8 D Chloride 103 Carbon Dioxide 32 H Anion Gap 13 BUN 10 Creatinine 0.80 Estim Creat Clear Calc 96.3 Estimated GFR > 60 Random Glucose 100 Lactic Acid Calcium 9.3 Magnesium Total Bilirubin Direct Bilirubin AST ALT Alkaline Phosphatase Total Creatine Kinase 322 H Troponin I High Sens 11.4 Total Protein Albumin Urine Color Urine Appearance Urine pH Ur Specific [place] Urine Protein Urine Glucose (UA) Urine Ketones Urine Blood Urine Nitrite Ur Leukocyte Esterase Urine Opiates Screen Urine Fentanyl Screen Ur Barbiturates Screen Ur Phencyclidine Scrn Ur Amphetamines Screen U Benzodiazepines Scrn Urine Cocaine Screen U Marijuana (THC) Screen Ethyl Alcohol COVID-19 (AILYN) COVID-19 Clin Com Discharge Plan Discharge Patient Disposition: Home, Self-Care Discharge Diagnosis: slurred speech Referrals: Physician,Unknown J [Primary Care Provider] - 1 Week Discharge Medications: Continued clonidine HCl 0.1 mg tablet 1 tab PO QID PRN (Reason: anxiety) RF: 0 hydroxyzine HCl 50 mg tablet 1 tab PO Q6H PRN (Reason: anxiety) RF: 0 nifedipine 10 mg capsule 10 mg PO BID PRN (Reason: Spasms) RF: 0 oxybutynin chloride 5 mg tablet 1 tab PO TID RF: 0 duloxetine 60 mg capsule,delayed release(DR/EC) 2 cap PO BEDTIME RF: 0 methadone 10 mg/mL Concentrate 79 mg PO DAILY RF: 0 Discharge Orders: Discharge Order (Routine); Ordered 04/26/21 Ordered By: Shamika Hughes Diet: advance to usual diet Activity on Discharge: As tolerated Stand Alone Forms: Patient Portal Discharge page Care Plan Goals: Patient came with slurred speech-had workup with CT scan and MRI done and seen by neurologist and recommendations are:? ? 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 My suggestion at this time is to educate her which I did and repeat brain scan in 2-3 months.? She is advised to talk to her primary care physician and obtain outpatient neurology consultation. Patient symptoms seems to be improved. In addition advised her strongly to avoid cocaine use and other brain toxins including alcohol, try to taper down methadone out patiently to stop if possible. Health Concerns: as above. Plan of Treatment: as above. Assessment: as above.
--- NOTE | 2021-04-26 14:34 | P.CNNE_ITS ---
History of Present Illness Data of Consult Service Date: 04/26/21 Primary Care Provider: Unknown Physician HPI Reason for consult: Abnormal brain MRI 35 years old woman with underlying history of cocaine abuse last use few days ago came to hospital with difficulty speaking. She said that she she never had such symptom. She denied any other medical problems. She was not having any headaches did not have any trauma and denied any alcohol use. Review of Systems Review of Systems: No recent tick bite rash or fever. PMFSH Past Medical History Medical History Depression IV drug abuse Surgical History Surgical History No pertinent past surgical history Social History Social History Advance Directives: No Advance Directives Information Provided: Yes Patient : No service: No Current occupational status: unemployed Meds Allergies Allergy/AdvReac Type Severity Reaction Status Date / Time venlafaxine [From EFFEXOR] Allergy Unknown FACIAL Unverified 02/20/20 17:28 SWELLING Effexor Allergy Unknown Uncoded 12/11/14 00:00 Active Medications: Current Medications Acetaminophen (Acetaminophen 325 Mg Tablet) 650 mg PO Q6H PRN PRN Reason: Pain, Mild (Pain Scale 1-3) Clonidine HCl (Clonidine Hcl 0.1 Mg Tablet) 0.1 mg PO QID PRN; Protocol PRN Reason: anxiety Docusate Sodium (Docusate Sodium 100 Mg Capsule) 100 mg PO DAILY PRN PRN Reason: Constipation Duloxetine HCl (Duloxetine Hcl 60 Mg Capsule.Dr) 120 mg PO BEDTIME [facility] Hydroxyzine HCl (Hydroxyzine Hcl 50 Mg Tablet) 50 mg PO Q6H PRN PRN Reason: anxiety Methadone HCl (Methadone Hcl 20 Mg/2 Ml Oral.Conc) 80 mg PO DAILY [facility] Last Admin: 04/26/21 10:10 Dose: 80 mg Documented by: Non-Formulary Medication (Nifedipine) 10 mg PO BID PRN PRN Reason: Spasms Ondansetron HCl (Ondansetron Hcl 4 Mg/2 Ml Vial) 4 mg IVPUSH Q8H PRN PRN Reason: Nausea and Vomiting Oxybutynin Chloride (Oxybutynin Chloride Er 5 Mg Tab.Er.24) 10 mg PO DAILY [facility] Last Admin: 04/26/21 10:12 Dose: 10 mg Documented by: Home Medications Medication Instructions Recorded Confirmed Last Taken Type clonidine HCl 0.1 mg tablet 1 tab PO QID PRN 04/26/21 04/26/21 Unknown History duloxetine 60 mg capsule,delayed 2 cap PO BEDTIME 04/26/21 04/26/21 Unknown History release hydroxyzine HCl 50 mg tablet 1 tab PO Q6H PRN 04/26/21 04/26/21 Unknown History methadone 10 mg/mL oral concentrate 79 mg PO DAILY 04/26/21 04/26/21 Unknown History nifedipine 10 mg capsule 10 mg PO BID PRN 04/26/21 04/26/21 Unknown History oxybutynin chloride 5 mg tablet 1 tab PO TID 04/26/21 04/26/21 Unknown History Physical Exam Vital Signs: Vital Signs: Last Vital Signs Temp 98.2 F 04/26/21 11:09 Pulse 89 04/26/21 11:09 Resp 18 04/26/21 11:09 BP 134/80 04/26/21 11:09 Pulse Ox 96 04/26/21 11:09 Body Mass Index 23.5 Neuro: Other: She was alert and awake with normal spontaneity and fluency of speech. Affect was depressed and anxious. Pupils were equal and reactive to light and extraocular muscles were intact. Visual marroquin are full. Face was symmetrical. Tongue was midline. There was no pronator drift. [id number] testing was normal. Deep tendon reflexes were 2+ in arms 3+ in knees and 2+ and ankles with flexor plantars. She was able to get up and walk with no difficulty. Results Labs CBC & Chem 7: 04/26/21 06:24 04/26/21 06:24 Labs: Short CBC 04/26/21 04/26/21 Range/Units 00:14 06:24 WBC 5.0 4.4 L (4.8-10.8) X10*3/uL Hgb 11.6 L 11.6 L (12.0-16.0) g/dl Hct 35.0 L 34.9 L (37.0-47.0) % Plt Count 183 189 (160-400) X10*3/uL BMP 04/26/21 04/26/21 00:14 06:24 Sodium 136 143 Potassium 3.1 L 4.8 D Chloride 99 103 Carbon Dioxide 27 32 H BUN 12 10 Creatinine 0.81 0.80 Calcium 9.1 9.3 Cardiac Enzymes 04/26/21 Range/Units 06:24 Total Creatine Kinase 322 H (26-140) U/L Liver Function 04/26/21 Range/Units 00:14 Total Bilirubin 0.3 (0.0-1.0) mg/dL Direct Bilirubin < 0.2 (0.0-0.5) mg/dL AST 25 (5-31) U/L ALT 15 (0-31) U/L Alkaline Phosphatase 53 (39-117) U/L Albumin 4.1 (3.5-5.0) g/dL Urine 04/26/21 Range/Units 00:13 Urine Color YELLOW Urine Appearance CLEAR Urine pH 7.0 (5.0-8.0) Ur Specific [place] <= 1.005 (1.005-1.025) Urine Protein NEG (NEG-TRACE) MG/DL Urine Glucose (UA) NEG (NEG) MG/DL Her brain MRI reveals symmetrical bilateral mostly in posterior circulation area changes in white matter is suggestive of cytotoxic pathology. 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 My suggestion at this time is to educate her which I did and repeat brain scan in 2-3 months. She is advised to talk to her primary care physician and obtain outpatient neurology consultation. Procedures Date of Service Date of Service: 04/26/21
--- NOTE | 2021-04-26 15:30 | MHC.RECOVRN ---
T/w met with pt after pt requested to speak with Recovery Team. Pts mother present, pt wanted mother to stay during conversation. Pt reports recent hx cocaine and heroin use. Pt states I only use the heroin to come down. Pt tearful, anxious, states I want to stop. I don't want to live like this. Pt currently on methadone, 79 mg daily. Pt reports taper beginning soon, states I don't like the way it makes me feel. I've been on it for a couple years. Discussed community supports and options with pt. Pt interested in recovery operator, t/w will refer. Pt reports feeling overwhelmed with options, declines other referrals at this time. Pt provided with written information regarding recovery supports, mother provided with [facility] [place] resources and contact information. Both also provided with t/w card if questions or concerns arise.
[2021-04-26] MEDS: hydrOXYzine HCL 50 MG TABLET PO (18:08)
--- NOTE | 2021-04-26 18:55 | P.PNIM_ITS ---
Subjective Subjective Date of Service: 04/26/21 Interval History: Slurred speech Review of Systems Patient was about to go home today and having recurrent slight speech episode. She also looks anxious underlying about going home. When talked to the patient in next 5-6 minute patient speech improving significantly Walking without any issues Denies any blurred vision or headaches or any new weakness or numbness. Physical Exam Vital Signs: Vital Signs: Last Vital Signs Temp 98.3 F 04/26/21 15:31 Pulse 95 04/26/21 15:31 Resp 20 04/26/21 15:31 BP 140/80 H 04/26/21 15:31 Pulse Ox 99 04/26/21 15:31 Body Mass Index 23.5 Appearance: Alert.? Oriented X3.? not in distress.? Eyes: Pupils equal, round and reactive to light.? Sclera nonicteric.? ENT: Pharynx normal.? Moist mucous membranes. cvs: rrr, [id number] , no murmur res: clear to auscultation ,no rhonchii or wheezing abd: no rebound or guarding ,nt, bs present. ext pulses present , no cyanosis ,Gait well balanced well coordinated. neuro: She was alert and awake with normal spontaneity and fluency of speech.?? Pupils were equal and reactive to light and extraocular muscles were intact.? Visual marroquin are full.? Face was symmetrical.? Tongue was midline.? There was no pronator drift.? [id number] testing was normal.? Deep tendon reflexes were 2+ in arms 3+ in knees and 2+ and ankles with flexor plantars. ? She was able to get up and walk with no difficulty. Objective Data Active Medications Acetaminophen (Acetaminophen 325 Mg Tablet) 650 mg PO Q6H PRN PRN Reason: Pain, Mild (Pain Scale 1-3) Clonidine HCl (Clonidine Hcl 0.1 Mg Tablet) 0.1 mg PO QID PRN; Protocol PRN Reason: anxiety Docusate Sodium (Docusate Sodium 100 Mg Capsule) 100 mg PO DAILY PRN PRN Reason: Constipation Duloxetine HCl (Duloxetine Hcl 60 Mg Capsule.Dr) 120 mg PO BEDTIME ALBERTO Hydroxyzine HCl (Hydroxyzine Hcl 50 Mg Tablet) 50 mg PO Q6H PRN PRN Reason: anxiety Last Admin: 04/26/21 18:08 Dose: 50 mg Documented by: RADHA Methadone HCl (Methadone Hcl 20 Mg/2 Ml Oral.Conc) 80 mg PO DAILY REPLACED BY [facility] Last Admin: 04/26/21 10:10 Dose: 80 mg Documented by: RADHA Non-Formulary Medication (Nifedipine) 10 mg PO BID PRN PRN Reason: Spasms Ondansetron HCl (Ondansetron Hcl 4 Mg/2 Ml Vial) 4 mg IVPUSH Q8H PRN PRN Reason: Nausea and Vomiting Oxybutynin Chloride (Oxybutynin Chloride Er 5 Mg Tab.Er.24) 10 mg PO DAILY REPLACED BY [facility] Last Admin: 04/26/21 10:12 Dose: 10 mg Documented by: RADHA Labs CBC & Chem 7: 04/26/21 06:24 04/26/21 06:24 Labs: Laboratory Results - last 24 hr 04/26/21 04/26/21 04/26/21 00:13 00:13 00:13 MCV MCH MCHC RDW Plt Count MPV Immature Gran % (Auto) Neut % (Auto) Lymph % (Auto) [place] % (Auto) Eos % (Auto) Baso % (Auto) Lymph # (Auto) [place] # (Auto) Eos # (Auto) Baso # (Auto) Abs Immat Gran (auto) Absolute Neuts (auto) Absolute Nucleated RBC Nucleated RBC % (auto) Anion Gap Estim Creat Clear Calc Estimated GFR Random Glucose Lactic Acid Calcium Magnesium Total Bilirubin Direct Bilirubin AST ALT Alkaline Phosphatase Total Creatine Kinase Troponin I High Sens Total Protein Albumin Urine Color YELLOW Urine Appearance CLEAR Urine pH 7.0 Ur Specific George <= 1.005 Urine Protein NEG Urine Glucose (UA) NEG Urine Ketones NEG Urine Blood NEG Urine Nitrite NEG Ur Leukocyte Esterase NEG Urine Opiates Screen Not Detected Urine Fentanyl Screen Not Detected Ur Barbiturates Screen Not Detected Ur Phencyclidine Scrn Not Detected Ur Amphetamines Screen Not Detected U Benzodiazepines Scrn Not Detected Urine Cocaine Screen Not Detected U Marijuana (THC) Screen Not Detected Ethyl Alcohol COVID-19 (AILYN) Negative COVID-19 Clin Com See Note 04/26/21 04/26/21 04/26/21 00:14 00:14 00:14 MCV 84.1 MCH 27.9 MCHC 33.1 RDW 13.0 Plt Count 183 MPV 9.7 Immature Gran % (Auto) 0.2 Neut % (Auto) 53.1 Lymph % (Auto) 35.3 [place] % (Auto) 11.0 Eos % (Auto) 0.0 Baso % (Auto) 0.4 Lymph # (Auto) 1.8 [place] # (Auto) 0.6 Eos # (Auto) 0.0 Baso # (Auto) 0.0 Abs Immat Gran (auto) 0.01 Absolute Neuts (auto) 2.7 Absolute Nucleated RBC 0.000 Nucleated RBC % (auto) 0.0 Anion Gap 13 Estim Creat Clear Calc 95.1 Estimated GFR > 60 Random Glucose 105 Lactic Acid Calcium 9.1 Magnesium 1.9 Total Bilirubin 0.3 Direct Bilirubin < 0.2 AST 25 ALT 15 Alkaline Phosphatase 53 Total Creatine Kinase Troponin I High Sens 18.0 H* Total Protein 6.7 Albumin 4.1 Urine Color Urine Appearance Urine pH Ur Specific [place] Urine Protein Urine Glucose (UA) Urine Ketones Urine Blood Urine Nitrite Ur Leukocyte Esterase Urine Opiates Screen Urine Fentanyl Screen Ur Barbiturates Screen Ur Phencyclidine Scrn Ur Amphetamines Screen U Benzodiazepines Scrn Urine Cocaine Screen U Marijuana (THC) Screen Ethyl Alcohol COVID-19 (AILYN) COVID-19 Clin Com 04/26/21 04/26/21 04/26/21 00:15 00:15 06:24 MCV 84.7 MCH 28.2 MCHC 33.2 RDW 13.1 Plt Count 189 MPV 10.6 Immature Gran % (Auto) 0.2 Neut % (Auto) 31.7 L Lymph % (Auto) 52.0 H [place] % (Auto) 15.6 H Eos % (Auto) 0.0 Baso % (Auto) 0.5 Lymph # (Auto) 2.3 [place] # (Auto) 0.7 Eos # (Auto) 0.0 Baso # (Auto) 0.0 Abs Immat Gran (auto) 0.01 Absolute Neuts (auto) 1.4 L Absolute Nucleated RBC 0.000 Nucleated RBC % (auto) 0.0 Anion Gap Estim Creat Clear Calc Estimated GFR Random Glucose Lactic Acid 1.0 Calcium Magnesium Total Bilirubin Direct Bilirubin AST ALT Alkaline Phosphatase Total Creatine Kinase Troponin I High Sens Total Protein Albumin Urine Color Urine Appearance Urine pH Ur Specific [place] Urine Protein Urine Glucose (UA) Urine Ketones Urine Blood Urine Nitrite Ur Leukocyte Esterase Urine Opiates Screen Urine Fentanyl Screen Ur Barbiturates Screen Ur Phencyclidine Scrn Ur Amphetamines Screen U Benzodiazepines Scrn Urine Cocaine Screen U Marijuana (THC) Screen Ethyl Alcohol < 10 COVID-19 (AILYN) COVID-19 Clin Com 04/26/21 04/26/21 06:24 08:22 MCV MCH MCHC RDW Plt Count MPV Immature Gran % (Auto) Neut % (Auto) Lymph % (Auto) [place] % (Auto) Eos % (Auto) Baso % (Auto) Lymph # (Auto) [place] # (Auto) Eos # (Auto) Baso # (Auto) Abs Immat Gran (auto) Absolute Neuts (auto) Absolute Nucleated RBC Nucleated RBC % (auto) Anion Gap 13 Estim Creat Clear Calc 96.3 Estimated GFR > 60 Random Glucose 100 Lactic Acid Calcium 9.3 Magnesium Total Bilirubin Direct Bilirubin AST ALT Alkaline Phosphatase Total Creatine Kinase 322 H Troponin I High Sens 11.4 Total Protein Albumin Urine Color Urine Appearance Urine pH Ur Specific [place] Urine Protein Urine Glucose (UA) Urine Ketones Urine Blood Urine Nitrite Ur Leukocyte Esterase Urine Opiates Screen Urine Fentanyl Screen Ur Barbiturates Screen Ur Phencyclidine Scrn Ur Amphetamines Screen U Benzodiazepines Scrn Urine Cocaine Screen U Marijuana (THC) Screen Ethyl Alcohol COVID-19 (AILYN) COVID-19 Clin Com Assessment and Plan (1) Leukoencephalopathy: Status: Acute Assessment and Plan: 35-year-old female past medical history of IV drug use presents to the hospital with complaints of dysarthria, paresthesia on her aunt as well as weakness in arms 1. Slurred speech:had workup with CT scan and MRI done? and seen by neurologist and recommendations:? ? 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 Patient started symptoms in the evening again, discussed with Neurology: Recommended to start on Solu-Medrol 1 g and plan for LP in the morning Her speech improved to baseline now. Neuro check If patient condition changes please call Neurology again. 2. IV drug use - monitor for withdrawal symptoms - otherwise will continue clonidine, and hydroxyzine 3. depression - continue duloxetine DVT prophylaxis:? Early ambulation Quality Stroke Does the patient have a stroke diagnosis?: No VTE Prior VTE?: No VTE Risk Level:: Medical - moderate - high VTE Device Contraindication: Treatment Not Indicated VTE Drug Contraindication: N/A - Med Ordered
[2021-04-26] MEDS: methylPREDNISolone Sod Succ 1,000 MG in 0.9 % Sodium Chloride 50 ML 66 MG IV (20:07)
[2021-04-26] MEDS: ALPRAZolam 0.5 MG TABLET PO (20:09)
[2021-04-27] VITALS (8 sets, daily range): BP systolic 98–144; BP diastolic 52–86; PULSE 79–106; RESP 17–18; TEMP 35.6–37; O2SAT 93–100
[2021-04-27] MEDS: methADONE HCl 20 MG/2 ML ORAL.CONC 80 MG PO (06:09)
--- NOTE | 2021-04-27 06:15 | PC.NURSE ---
MORNING METHADONE DOSE SCHEDULED FOR 0900. HOWEVER, PREVIOUS EVENING PATIENT ASKED HER NURSE TO PLEASE PASS ON TO HAVE DOSE AT 0600 PER HER ROUTINE. THIS [employer]BER WAS ALSO ASKED BY PATIENT AND 8OMG ORAL DOSE ADMINISTERED TO PATIENT AT 0615 PER HER REQUEST. PT CALM, CO-OP, SOFT SPOKEN, WORDS CLEAR, ABLE TO VERBALIZE HER NAME AND DATE CLEARLY
[2021-04-27 06:48] LABS: Anion Gap 14 (12-20); Blood Urea Nitrogen 10 mg/dL (9-16); Calcium 9.8 mg/dL (8.4-10.2); Carbon Dioxide 28 mmol/L (22-29); Chloride 103 mmol/L (96-108); Creatinine Clr Calc Pharmacy 92.8; Estimated Glomerular Filt Rate > 60; Glucose Random 149 mg/dL (60-115); Potassium 4.2 mmol/L (3.3-5.1); Sodium 141 mmol/L (135-145)
[2021-04-27 06:50] LABS: Cholesterol 150 mg/dL; HDL Cholesterol 48 mg/dL; INTERNATIONAL NORM RATIO 1.1 (0.9-1.1); LDL Cholesterol Calculated 96 mg/dl; Prothrombin Time 12.2 SEC (9.9-13.0); Triglycerides 31 mg/dL
[2021-04-27 06:52] LABS: Hematocrit 37.8 % (37.0-47.0); Hemoglobin 12.4 g/dl (12.0-16.0); Mean Corpuscular HGB Conc 32.8 g/dl (31.0-35.0); Mean Corpuscular Hemoglobin 28.4 pg (27.0-33.0); Mean Corpuscular Volume 86.5 fL (80.0-98.0); Mean Platelet Volume 10.6 fL (9.4-12.3); Platelet Count 224 X10*3/uL (160-400); Red Blood Count 4.37 X10*6/uL (4.20-5.50); Red Cell Distribution Width 13.1 % (11.0-16.0); White Blood Count 3.8 X10*3/uL (4.8-10.8)
[2021-04-27] MEDS: ALPRAZolam 0.5 MG TABLET PO (12:07)
--- NOTE | 2021-04-27 13:29 | P.PNIM_ITS ---
Subjective Subjective Date of Service: 04/27/21 Interval History: seen in f/u for w/u for slur speech, c/o some headache, chest pain this morning, no weakness, no slur speech Review of Systems headache, no fever, no chills Physical Exam Vital Signs: Vital Signs: Last Vital Signs Temp 98.3 F 04/27/21 11:13 Pulse 94 04/27/21 11:13 Resp 18 04/27/21 11:13 BP 144/86 H 04/27/21 11:13 Pulse Ox 97 04/27/21 11:13 Body Mass Index 23.5 Const: Other: Appearance: Alert. Oriented X3. No acute distress. Neck: Normal inspection. Neck supple. No lymph nodes noted. No crepitus CVS: Normal heart rate and rhythm. Pulses normal. Normal S1 and S2 Respiratory: No respiratory distress. Breath sounds normal. No Wheezing. No rales Abdomen: Soft and nontender. No rigidity. No distention. good BS x4 Skin: Skin warm and dry. Normal skin color. Normal skin turgor. Extremities: No lower extremity edema. No lower extremity edema. No Lacerations. No Rash Neuro: Oriented X 3. No slur speech, motor function is intact Objective Data Active Medications Acetaminophen (Acetaminophen 325 Mg Tablet) 650 mg PO Q6H PRN PRN Reason: Pain, Mild (Pain Scale 1-3) Clonidine HCl (Clonidine Hcl 0.1 Mg Tablet) 0.1 mg PO QID PRN; Protocol PRN Reason: anxiety Docusate Sodium (Docusate Sodium 100 Mg Capsule) 100 mg PO DAILY PRN PRN Reason: Constipation Duloxetine HCl (Duloxetine Hcl 60 Mg Capsule.Dr) 120 mg PO BEDTIME [facility] Last Admin: 04/26/21 20:09 Dose: Not Given Documented by: ELMER Non-Admin Reason: took dose this morning Hydroxyzine HCl (Hydroxyzine Hcl 50 Mg Tablet) 50 mg PO Q6H PRN PRN Reason: anxiety Last Admin: 04/26/21 18:08 Dose: 50 mg Documented by: RADHA Methadone HCl (Methadone Hcl 20 Mg/2 Ml Oral.Conc) 80 mg PO DAILY [facility] Last Admin: 04/27/21 06:09 Dose: 80 mg Documented by: ALICIA Ondansetron HCl (Ondansetron Hcl 4 Mg/2 Ml Vial) 4 mg IVPUSH Q8H PRN PRN Reason: Nausea and Vomiting Oxybutynin Chloride (Oxybutynin Chloride Er 5 Mg Tab.Er.24) 10 mg PO DAILY ALBERTO Last Admin: 04/27/21 10:20 Dose: 10 mg Documented by: RADHA Labs CBC & Chem 7: 04/27/21 05:56 04/27/21 05:56 Labs: Laboratory Results - last 24 hr 04/27/21 04/27/21 04/27/21 05:56 05:56 05:56 MCV 86.5 MCH 28.4 MCHC 32.8 RDW 13.1 Plt Count 224 MPV 10.6 Absolute Nucleated RBC 0.000 Nucleated RBC % (auto) 0.0 PT 12.2 INR 1.1 Anion Gap Estim Creat Clear Calc Estimated GFR Random Glucose Calcium Triglycerides 31 Cholesterol 150 LDL Cholesterol, Calc 96 HDL Cholesterol 48 04/27/21 05:56 MCV MCH MCHC RDW Plt Count MPV Absolute Nucleated RBC Nucleated RBC % (auto) PT INR Anion Gap 14 Estim Creat Clear Calc 92.8 Estimated GFR > 60 Random Glucose 149 H Calcium 9.8 Triglycerides Cholesterol LDL Cholesterol, Calc HDL Cholesterol Assessment and Plan (1) Leukoencephalopathy: Status: Acute (2) Dysarthria: Status: Acute Assessment and Plan: 35-year-old female past medical history of IV drug use presents to the hospital with complaints of dysarthria, paresthesia on her aunt as well as weakness in arms 1. Slurred speech:had workup with CT scan and MRI done? and seen by neurologist and recommendations:? ? 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 Given IV solumedrol and getting LP done today per Neuro recommendation 2. IV drug use - monitor for withdrawal symptoms - otherwise will continue clonidine, and hydroxyzine 3. depression - continue duloxetine DVT prophylaxis:? Early ambulation Quality Stroke Does the patient have a stroke diagnosis?: No VTE Prior VTE?: No VTE Risk Level:: Medical - moderate - high VTE Device Contraindication: Treatment Not Indicated VTE Drug Contraindication: N/A - Med Ordered
--- NOTE | 2021-04-27 13:53 | HO.RADPN ---
RADIOLOGY Narrative Narrative: LP performed using 22g spnal needle at L3/L4. Opening pressure 16 cm h20. 7 ml clear csf removed.
[2021-04-27 14:38] LABS: CSF Appearance Clear, Colorless; CSF Tube # 2
[2021-04-27 14:47] LABS: Glucose CSF 84 mg/dL; Total Protein CSF 21.5 mg/dL (15-45)
[2021-04-27 15:13] LABS: Appearance CSF CLEAR; CSF Tube # 1; CSF Volume 1.5 ML; Color CSF COLORLESS; Lymphocytes CSF 100 %; Red Blood Cell CSF 0 MM*3; White Blood Cell CSF 1 MM*3
[2021-04-28] VITALS: BP 111/62; PULSE 72; RESP 16; TEMP 37.1; O2SAT 98
[2021-04-28 03:40] VITALS: BP 103/61; PULSE 88; RESP 17; TEMP 36.4; O2SAT 99
[2021-04-28 08:00] VITALS: BP 110/58; PULSE 82; RESP 18; TEMP 37.1; O2SAT 97
--- NOTE | 2021-04-28 08:25 | MHC.CM.PN ---
at this time dc plan is to return home no svcs c resumption of mmtp in [place]. cm to cont. to follow.
[2021-04-28] MEDS: hydrOXYzine HCL 50 MG TABLET PO (08:49)
[2021-04-28] MEDS: DULoxetine HCl 60 MG CAPSULE.DR 120 MG PO (08:49)
[2021-04-28] MEDS: methADONE HCl 20 MG/2 ML ORAL.CONC 80 MG PO (08:49)
[2021-04-28] MEDS: Acetaminophen 325 MG TABLET 650 MG PO (08:52)
[2021-04-28 09:05] LABS: Oligoclonal Serum Yes
--- NOTE | 2021-04-28 09:31 | P.CNNE_ITS ---
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 This morning she was doing better. Couple of days ago she started having symptoms again and a dose of Solu-Medrol was given and a lumbar puncture was performed. [facility] Past Medical History Medical History Depression IV drug abuse Surgical History Surgical History No pertinent past surgical history Social History Social History Advance Directives: No Advance Directives Information Provided: Yes Patient : No service: No Current occupational status: unemployed Meds Allergies Allergy/AdvReac Type Severity Reaction Status Date / Time venlafaxine [From EFFEXOR] Allergy Unknown FACIAL Verified 04/26/21 21:57 SWELLING Active Medications: Current Medications Acetaminophen (Acetaminophen 325 Mg Tablet) 650 mg PO Q6H PRN PRN Reason: Pain, Mild (Pain Scale 1-3) Last Admin: 04/28/21 08:52 Dose: 650 mg Documented by: Clonidine HCl (Clonidine Hcl 0.1 Mg Tablet) 0.1 mg PO QID PRN; Protocol PRN Reason: anxiety Docusate Sodium (Docusate Sodium 100 Mg Capsule) 100 mg PO DAILY PRN PRN Reason: Constipation Duloxetine HCl (Duloxetine Hcl 60 Mg Capsule.Dr) 120 mg PO BEDTIME [facility] Last Admin: 04/28/21 08:49 Dose: 120 mg Documented by: Hydroxyzine HCl (Hydroxyzine Hcl 50 Mg Tablet) 50 mg PO Q6H PRN PRN Reason: anxiety Last Admin: 04/28/21 08:49 Dose: 50 mg Documented by: Methadone HCl (Methadone Hcl 20 Mg/2 Ml Oral.Conc) 80 mg PO DAILY [facility] Last Admin: 04/28/21 08:49 Dose: 80 mg Documented by: Ondansetron HCl (Ondansetron Hcl 4 Mg/2 Ml Vial) 4 mg IVPUSH Q8H PRN PRN Reason: Nausea and Vomiting Oxybutynin Chloride (Oxybutynin Chloride Er 5 Mg Tab.Er.24) 10 mg PO DAILY [facility] Last Admin: 04/28/21 08:49 Dose: 10 mg Documented by: Home Medications Medication Instructions Recorded Confirmed Last Taken Type clonidine HCl 0.1 mg tablet 1 tab PO QID PRN 04/26/21 04/26/21 Unknown History duloxetine 60 mg capsule,delayed 2 cap PO BEDTIME 04/26/21 04/26/21 Unknown History release hydroxyzine HCl 50 mg tablet 1 tab PO Q6H PRN 04/26/21 04/26/21 Unknown History methadone 10 mg/mL oral concentrate 79 mg PO DAILY 04/26/21 04/26/21 Unknown History nifedipine 10 mg capsule 10 mg PO BID PRN 04/26/21 04/26/21 Unknown History oxybutynin chloride 5 mg tablet 1 tab PO TID 04/26/21 04/26/21 Unknown History Physical Exam Vital Signs: Vital Signs: Last Vital Signs Temp 98.7 F 04/28/21 08:00 Pulse 82 04/28/21 08:00 Resp 18 04/28/21 08:00 BP 110/58 L 04/28/21 08:00 Pulse Ox 97 04/28/21 08:00 Body Mass Index 23.5 Neuro: Other: Alert and awake with normal spontaneity of speech fluency comprehension and affect Results Labs CBC & Chem 7: 04/27/21 05:56 04/27/21 05:56 Labs: Spinal fluid initial result showed Assessment and Plan (1) Leukoencephalopathy: Status: Acute 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 At this time she did not have any significant symptoms. Spinal fluid was normal. My recommendation is to repeat brain MRI in 2-3 months but otherwise no intervention at this time. She could be discharge with strong instructions to avoid any drug abuse. Procedures Date of Service Date of Service: 04/28/21
--- NOTE | 2021-04-28 11:32 | P.DS_ITS ---
DS: Providers Provider Date of Service: 04/28/21 Date of admission: 04/26/21 01:29 Primary care physician: Bernarda Jimenez PA-C Consults: 04/26/21 01:34 Consult to Neurology Routine Consulting Provider: [facility] Reason for consultation: slurred speech, leg weakness Has provider been notified: No DS: Diagnosis Discharge Diagnosis (1) Leukoencephalopathy: Status: Acute DS: Summary Hospital Course Hospital Course: 35-year-old female with past medical history of depression IV drug abuse who presents to the hospital for acute onset dysarthria and left-sided mouth droopiness.? Patient reports that she has difficulty speaking,as numbness and tingling around her lips, weakness in her legs bilaterally and tingling in her hands bilaterally? Symptoms started around 8:00 p.m., have not resolved.? She otherwise denies any headache, no change in vision, no chest pain no abdominal pain, no nausea or vomiting, no diarrhea or constipation, no urinary symptoms and no lower extremity edema.? Her father is a physician who is at bedside reports the patient did use IV cocaine recently and has a history of IV drug use and that is why they were very concerned. Vital signs reviewed significant for temperature of 97?, rate of 101, respiratory rate of 24, blood pressure 137/95, statin and% room air Labs are significant for WBC count of 5, hemoglobin of 11.6, otherwise unremarkable, UA negative, UDS negative, COVID-[address] shows no acute intracranial finding Head and neck CT angiogram shows no hemodynamically significant stenosis in the major arteries of the neck, no large vessel occlusion or significant stenosis in the intracranial circulation. Hospital course: Patient came with slurred speech-had workup with CT scan and MRI done and seen by neurologist with the following observation and recommendations:? ? 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 My suggestion at this time is to educate her which I did and repeat brain scan in 2-3 months.? She is advised to talk to her primary care physician and obtain outpatient neurology consultation. Patient symptoms seems to be improved . Additinally patient was given 1 gram of IV solumedrol when it was noted that her symptoms returned, then had LP done and seem unremarkable but labs including, Oligoclonal band are pending. In addition advised her strongly to avoid cocaine use and other brain toxins including alcohol, try to taper down methadone out patiently to stop if possible. Above management discussed with the patient in detail length by neurology and recomendation discussed again upon discharge.-she understand and in agreement with the above plan, time spent 50 minutes and 50% time spent on counseling. Significant findings: As above. Procedures performed: LP Time Spent with Patient Time attestation: Total time spent providing and/or coordinating discharge services: Discharge coordination time: Greater than 30 minutes Quality: Stroke Does the patient have a stroke diagnosis?: No Physical Exam Vital Signs: Vital Signs: Last Vital Signs Temp 98.7 F 04/28/21 08:00 Pulse 82 04/28/21 08:00 Resp 18 04/28/21 08:00 BP 110/58 L 04/28/21 08:00 Pulse Ox 97 04/28/21 08:00 Body Mass Index 23.5 Const: Other: General: AO X 3, no acute distress Resp: CTA bilateral CVS: S1,S2,RRR GI: +BS, NT, no distention Skin: No rash Neuro: motor grossly intact Psych: appropriate affect DS: Data Data Completed and Pending Labs on day of discharge: Laboratory Results - last 24 hr 04/27/21 04/27/21 Unknown Unknown CSF Tube Number 2 1 CSF Volume 1.5 CSF Appearance CLEAR CSF Color COLORLESS CSF WBC 1 CSF RBC 0 CSF Lymphocytes 100 CSF Appearance (b) Clear, Colorless CSF Glucose 84 CSF Total Protein 21.5 Discharge Plan Discharge Anticipated Discharge Date/Time: 04/28/21 11:31 Patient Disposition: Home, Self-Care Discharge Diagnosis: slurred speech Referrals: Physician,Unknown J [Physician] - 1 Week Discharge Medications: Continued clonidine HCl 0.1 mg tablet 1 tab PO QID PRN (Reason: anxiety) RF: 0 hydroxyzine HCl 50 mg tablet 1 tab PO Q6H PRN (Reason: anxiety) RF: 0 nifedipine 10 mg capsule 10 mg PO BID PRN (Reason: Spasms) RF: 0 oxybutynin chloride 5 mg tablet 1 tab PO TID RF: 0 duloxetine 60 mg capsule,delayed release(DR/EC) 2 cap PO BEDTIME RF: 0 methadone 10 mg/mL Concentrate 79 mg PO DAILY RF: 0 Discharge Orders: Discharge Order (Routine); Ordered 04/26/21 Ordered By: Shamika Hughes Diet: advance to usual diet Activity on Discharge: As tolerated Stand Alone Forms: Patient Portal Discharge page Care Plan Goals: Patient came with slurred speech-had workup with CT scan and MRI done and seen by neurologist and recommendations are:? ? Probably cocaine induced aubrey koencephalopathy there were some other possibilities including demyelinating disease, congenital diseases or inflammatory conditions.? 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 My suggestion at this time is to educate her which I did and repeat brain scan in 2-3 months.? She is advised to talk to her primary care physician and obtain outpatient neurology consultation. Patient symptoms seems to be improved. In addition advised her strongly to avoid cocaine use and other brain toxins including alcohol, try to taper down methadone out patiently to stop if possible. Health Concerns: as above. Plan of Treatment: as above. Assessment: as above.
== END 2021-04-28 11:43 | disposition home or self-care (01) ==
LOC: HO.ED 04-26 00:26 → HO.EDOVER 04-26 02:00 → HO.IMC 04-26 03:04
PROVIDERS: Internal Medicine; Admitting Provider Internal Medicine; Emergency Provider Emergency Medicine; PCP Physician Assistant Medical; Visit Provider Internal Medicine
DX: R47.1 Dysarthria and anarthria (principal); R51.9 Headache, unspecified; R53.1 Weakness; G92.9 Unspecified toxic encephalopathy; T40.5X5A Adverse effect of cocaine, initial encounter; T40.5X1A Poisoning by cocaine, accidental (unintentional), initial encounter; Z20.822 Contact with and (suspected) exposure to COVID-19
CPT/HCPCS: 36415; 62328; 70450; 70496; 70498; 70553; 80048; 80061; 80076; 80307; 81003; 82077; 82550; 82945; 83605; 83735; 83916; 84157; 84484; 85025; 85027; 85610; 87635; 89051; 93005; 97162; 97166; 99219; 99285; A9585; J2930; Q9967

== ENCOUNTER 2021-07-28 14:42 | Outpatient (REF) | payer MEDICAID, SELFPAY ==
--- NOTE | ~2021-07-28 | MR_ITS ---
MR BRAIN WITHOUT AND WITH CONTRAST CLINICAL INFORMATION: Three-month follow-up. Slurred speech and weakness. COMPARISON: MRI brain 04/26/2021. TECHNIQUE: Multiplanar, multisequence MRI of the brain was obtained before and after the intravenous administration of 10 mL Gadavist. FINDINGS: There is no pathologic intracranial enhancement. No parenchymal signal abnormality. There is no hydrocephalus, extra-axial surface collection, or herniation. The major flow voids at the skull base are preserved. There is no acute infarct on diffusion-weighted imaging. There is no intracranial hemorrhage on the gradient recalled echo acquisition. The midline structures are normal. The cerebellar tonsils are normally positioned. The cerebellum and brainstem are normal. The craniocervical junction is normal. Osseous marrow signal intensity is homogenous. The visualized soft tissues are unremarkable. MR/MR head/brain wo/w con IMPRESSION: Unremarkable MRI of the brain.
== END 2021-07-28 14:43 | disposition home or self-care (01) ==
LOC: HO.MRI 14:42
PROVIDERS: Visit Provider Internal Medicine
DX: R47.81 Slurred speech (principal)
CPT/HCPCS: 70553; A9585

== ENCOUNTER 2023-06-27 12:06 | Emergency (ER) | payer MEDICAID, SELFPAY ==
--- NOTE | ~2023-06-27 | CT_ITS ---
EXAMINATION: CT ABDOMEN AND PELVIS WITHOUT CONTRAST CLINICAL INFORMATION: Left-sided abdominal pain. History of kidney stones. COMPARISON: None available. TECHNIQUE: Multidetector volumetric imaging was performed from the superior aspect of the liver through the pubic symphysis. Sagittal and coronal reformatted images were obtained on the technologist's workstation. This CT examination was performed using dose optimization techniques as appropriate, variously including the following: *Automated exposure control *Adjustment of mA and/or kV according to patient size (this includes techniques or standardized protocols for targeted exams where dose is matched to indication/reason for exam; i.e. extremities or head) *Use of iterative reconstruction technique DLP: 426 mGy-cm FINDINGS: LUNG BASES: The visualized lung bases are unremarkable. LIVER, GALLBLADDER, AND BILIARY TREE: The liver is normal in size, shape, and attenuation. No focal hepatic lesion or biliary ductal dilatation is present. The gallbladder is unremarkable with no evidence of radiopaque gallstones, gallbladder wall thickening, or obvious pericholecystic inflammatory changes. PANCREAS: Unremarkable. SPLEEN: Unremarkable. ADRENAL GLANDS: Unremarkable. KIDNEYS AND URETERS: 2 mm nonobstructive stone lower pole of left kidney. 1 mm nonobstructive stone mid pole right kidney there is no ureteral stone. There is no hydronephrosis. BLADDER: Unremarkable. GASTROINTESTINAL TRACT: The small and large bowel are unremarkable. The appendix is unremarkable. ABDOMINAL WALL: No significant hernia is appreciated. LYMPH NODES: Normal. VASCULAR: Unremarkable. PELVIC VISCERA: Unremarkable. OSSEOUS STRUCTURES: Unremarkable. CT/CT abdomen pelvis wo IV con IMPRESSION: No significant abnormality. Fleischner guidelines were followed.
--- NOTE | 2023-06-27 12:10 | ED_ITS ---
HPI - Abdominal Pain General Chief Complaint: Urogenital-Female Stated Complaint: Kidney stones Related Data Home Medications Medication Instructions Recorded Confirmed clonidine HCl 0.1 mg tablet 1 tab PO QID PRN anxiety 04/26/21 04/26/21 duloxetine 60 mg capsule,delayed 2 cap PO BEDTIME 04/26/21 04/26/21 release hydroxyzine HCl 50 mg tablet 1 tab PO Q6H PRN anxiety 04/26/21 04/26/21 methadone 10 mg/mL oral concentrate 79 mg PO DAILY 04/26/21 04/26/21 nifedipine 10 mg capsule 10 mg PO BID PRN Spasms 04/26/21 04/26/21 oxybutynin chloride 5 mg tablet 1 tab PO TID 04/26/21 04/26/21 Allergies Allergy/AdvReac Type Severity Reaction Status Date / Time venlafaxine [From EFFEXOR] Allergy Unknown FACIAL Verified 06/27/23 12:10 SWELLING PMFSH Past Medical History Medical History (Updated 07/07/23 @ 09:52 by NUNO Robertson) IV drug abuse Depression Surgical History No pertinent past surgical history Social History Social History Advance Directives: No Advance Directives Information Provided: No service: No Current occupational status: unemployed Physical Exam ED Vital Signs: BMI result Body Mass Index 22.9 Course Course Course Narrative: RME: 37 year-old w/ PMHx renal stones presenting to the ED c/o left sided abdominal pain radiating to LLQ x this morning. Admits pain similar to prior stone. Dx with kidney stone at [facility] 2 months ago (LWCT due to wait time & pain) & believes she didn't pass it. +nausea and vomiting Pale, dry heaving during eval Labs, UA, CTAP ordered Full HPI, ROS and PE to be performed by primary ED provider. Medical Decision Making Lab Data 06/27/23 12:57 06/27/23 12:57 Labs: Lab Results 06/27/23 Range/Units 12:57 WBC 18.5 H (4.8-10.8) X10*3/uL RBC 4.70 (4.20-5.50) X10*6/uL Hgb 14.3 (12.0-16.0) g/dl Hct 41.6 (37.0-47.0) % MCV 88.5 (80.0-98.0) fL MCH 30.4 (27.0-33.0) pg MCHC 34.4 (31.0-35.0) g/dl RDW 11.9 (11.0-16.0) % Plt Count 246 (160-400) X10*3/uL MPV 10.9 (9.4-12.3) fL Immature Gran % (Auto) 0.3 (0.0-0.4) % Neut % (Auto) 91.5 H (45-73) % Lymph % (Auto) 5.0 L (20-40) % Jenkins % (Auto) 3.0 (2-11) % Eos % (Auto) 0.0 (0-4) % Baso % (Auto) 0.2 (0-2) % Lymph # (Auto) 0.9 L (1.2-4.9) X10*3/uL Jenkins # (Auto) 0.6 (0.1-1.2) X10*3/uL Eos # (Auto) 0.0 (0.0-0.4) X10*3/uL Baso # (Auto) 0.0 (0.0-0.2) X10*3/uL Abs Immat Gran (auto) 0.06 H (0.00-0.03) X10*3/uL Absolute Neuts (auto) 17.0 H (2.0-8.3) x10*3/uL Absolute Nucleated RBC 0.000 (0.0-0.012) X10*3/uL Nucleated RBC % (auto) 0.0 (0.0-0.2) /100WBC Smear Tech's Comments VERIFIED Sodium 143 (135-145) mmol/L Potassium 4.1 (3.3-5.1) mmol/L Chloride 104 (96-108) mmol/L Carbon Dioxide 30 H (22-29) mmol/L Anion Gap 13 (12-20) BUN 12 (9-16) mg/dL Creatinine 0.78 (0.5-1.4) mg/dL Estim Creat Clear Calc 96.9 Estimated GFR > 60 Random Glucose 137 H (60-115) mg/dL Calcium 9.5 (8.4-10.2) mg/dL Magnesium 2.1 (1.6-2.6) mg/dL Total Bilirubin 0.4 (0.0-1.0) mg/dL Direct Bilirubin 0.2 (0.0-0.5) mg/dL AST 14 (5-31) U/L ALT 12 (0-31) U/L Alkaline Phosphatase 57 (39-117) U/L Total Protein 7.5 (6.5-8.0) g/dL Albumin 4.6 (3.5-5.0) g/dL Lipase 7 L (8-78) U/L Beta HCG, Quant < 2 mIU/mL Urine Color Yellow Urine Appearance Turbid Urine pH >= 9.0 (5.0-9.0) Ur Specific [place] 1.015 (1.005-1.025) Urine Protein 30 (1+) H (Neg-Trace) mg/dL Urine Glucose (UA) Negative (Negative) mg/dL Urine Ketones 40 (Negative) mg/dL Urine Blood Negative (Negative) Urine Nitrite Negative (Negative) Ur Leukocyte Esterase Negative (Negative) Urine RBC 0-2 (0-2) /HPF Urine WBC 0-5 (0-5) /HPF Ur Squamous Epith Cells 0-2 (0-2) /HPF Urine Bacteria None Seen (None Seen) Hyaline Casts 0-2 (0-2) /LPF Urine Test NEGATIVE (NEGATIVE) Medications Administered Discontinued Medications Generic Name Dose Route Start Last Admin Trade Name Freq PRN Reason Stop Dose Admin Ibuprofen 800 mg 06/27/23 17:53 06/27/23 18:05 Ibuprofen 800 Mg Tablet PO 06/27/23 17:54 800 mg ONCE ONE Administration Ondansetron HCl 4 mg 06/27/23 12:12 06/27/23 12:15 Ondansetron Odt 4 Mg Tab.Rapdis TRANSLINGU 06/27/23 12:13 4 mg ONCE ONE Administration Discharge Plan Discharge Clinical Impression: Flank pain Patient Disposition: Left W/O Completing Treatment Prescriptions: No Action clonidine HCl 0.1 mg tablet 1 tab PO QID PRN (Reason: anxiety) hydroxyzine HCl 50 mg tablet 1 tab PO Q6H PRN (Reason: anxiety) nifedipine 10 mg capsule 10 mg PO BID PRN (Reason: Spasms) oxybutynin chloride 5 mg tablet 1 tab PO TID duloxetine 60 mg capsule,delayed release(DR/EC) 2 cap PO BEDTIME methadone 10 mg/mL Concentrate 79 mg PO DAILY Discharge Date/Time: 06/27/23 22:29
[2023-06-27 12:11] VITALS: BP 138/81; PULSE 60; RESP 18; TEMP 36; O2SAT 100; BMI 22.9
[2023-06-27] MEDS: Ondansetron ODT 4 MG TAB.RAPDIS TRANSLINGU (12:15)
--- NOTE | 2023-06-27 12:16 | PC.NURSE ---
pt medicated per MAR.
[2023-06-27 13:10] LABS: Basophils Percent Auto 0.2 % (0-2); Hematocrit 41.6 % (37.0-47.0); Hemoglobin 14.3 g/dl (12.0-16.0); Imm Gran Abs Auto 0.06 X10*3/uL (0.00-0.03); Imm Gran Pct Auto 0.3 % (0.0-0.4); Lymphocytes Absolute Auto 0.9 X10*3/uL (1.2-4.9); MANUAL DIFF FLAG SCAN; Mean Corpuscular HGB Conc 34.4 g/dl (31.0-35.0); Mean Corpuscular Hemoglobin 30.4 pg (27.0-33.0); Mean Corpuscular Volume 88.5 fL (80.0-98.0); Mean Platelet Volume 10.9 fL (9.4-12.3); Monocytes Absolute Auto 0.6 X10*3/uL (0.1-1.2); Neutrophils Percent Auto 91.5 % (45-73); Platelet Count 246 X10*3/uL (160-400); Red Cell Distribution Width 11.9 % (11.0-16.0); SCAN SMEAR FLAG 1; White Blood Count 18.5 X10*3/uL (4.8-10.8)
[2023-06-27 13:11] LABS: Appearance Urine Turbid; Color Urine Yellow; Glucose Urine UA Negative (Negative); Leukocyte Esterase Urine Negative (Negative); Nitrite Urine Negative (Negative); PH >= 9.0 (5.0-9.0); Specific Gravity - Urine 1.015 (1.005-1.025); UMIC TRIGGER UACC YES; Urine Blood Negative (Negative); Urine Ketones 40 mg/dL (Negative); Urine Protein 30 (1+) mg/dL (Neg-Trace)
[2023-06-27 13:13] LABS: UPreg QC Valid YES; Urine Pregnancy NEGATIVE (NEGATIVE)
[2023-06-27 13:22] LABS: Alanine Aminotransferase 12 U/L (0-31); Albumin Level 4.6 g/dL (3.5-5.0); Alkaline Phosphatase 57 U/L (39-117); Anion Gap 13 (12-20); Aspartate Amino Transferase 14 U/L (5-31); Bacteria Urine None Seen (None Seen); Bilirubin Direct 0.2 mg/dL (0.0-0.5); Bilirubin Total 0.4 mg/dL (0.0-1.0); Blood Urea Nitrogen 12 mg/dL (9-16); Calcium 9.5 mg/dL (8.4-10.2); Carbon Dioxide 30 mmol/L (22-29); Chloride 104 mmol/L (96-108); Creatinine Clr Calc Pharmacy 96.9; Estimated Glomerular Filt Rate > 60; Glucose Random 137 mg/dL (60-115); Hyaline Casts Urine 0-2 /LPF (0-2); Lipase 7 U/L (8-78); Magnesium 2.1 mg/dL (1.6-2.6); Potassium 4.1 mmol/L (3.3-5.1); RBC Urine 0-2 /HPF (0-2); Sodium 143 mmol/L (135-145); Squamous Epithelial Cell Urine 0-2 /HPF (0-2); Total Protein 7.5 g/dL (6.5-8.0); WBC Urine 0-5 /HPF (0-5)
[2023-06-27 13:29] LABS: SLIDE REVIEW VERIFIED
[2023-06-27 13:32] LABS: HCG Quantitative < 2 mIU/mL
[2023-06-27] MEDS: Ibuprofen 800 MG TABLET PO (18:05)
== END 2023-06-27 22:29 | disposition left against medical advice (07) ==
PROVIDERS: Physician Assistant; Emergency Provider Emergency Medicine; PCP Physician Assistant Medical
DX: R10.9 Unspecified abdominal pain (principal); R11.2 Nausea with vomiting, unspecified; Z79.899 Other long term (current) drug therapy
CPT/HCPCS: 36415; 74176; 80048; 80076; 81001; 81025; 83690; 83735; 84702; 85025; 99283; 99284